=== PATIENT | female | born 1985 | race Two or more races ===

== ENCOUNTER 2022-02-03 15:39 | Emergency (ER) | payer MEDICAID ==
[~2022-02-03] VITALS: Ht 162.6 cm; Wt 72.7 kg
[2022-02-03] MEDS ORDERED: CHOL500043 PO (15:54)
[2022-02-03] MEDS ORDERED: PIOG30TA10 PO (15:54)
[2022-02-03] MEDS ORDERED: GLIP5TAB12 PO (15:54)
[2022-02-03] MEDS ORDERED: MECL-134 PO (15:54)
[2022-02-03] MEDS ORDERED: PB/HYOSCY/ATR/SCOP/LIDO/MAALOX 55 ML BOTTLE PO ONE (16:30)
[2022-02-03] MEDS ORDERED: SODIUM CHLORIDE 0.9% 1,000 ML IV ONE ×2 (16:30→21:15)
[2022-02-03 16:34] LABS: BASOPHILS % (AUTO) 0.5 % (0.0-2.0); HEMATOCRIT 37.9 % (36-46); HEMOGLOBIN 12.5 g/dL (12.0-16.0); LYMPHOCYTES # (AUTO) 2.8 K/uL (1.0-4.8); LYMPHOCYTES % (AUTO) 28.1 % (22.0-44.0); MEAN CORPUSCULAR VOLUME 76 fL (80-100); MONOCYTES # (AUTO) 0.6 K/uL (0.1-1.0); MONOCYTES % (AUTO) 5.9 % (2.0-9.0); NEUTROPHILS # (AUTO) 6.5 K/uL (1.8-7.7); NEUTROPHILS % (AUTO) 64.5 % (40.0-70.0); PLATELET COUNT (AUTO) 322 K/uL (150-450); RED CELL DISTRIBUTION WIDTH 14.4 % (11.5-14.5)
[2022-02-03 16:46] LABS: COVID AG,FIA SOURCE NASAL SWAB
[2022-02-03 16:53] LABS: ALANINE AMINOTRANSFERASE 41 U/L (12-78); ALBUMIN 3.9 g/dL (3.4-5.0); ALKALINE PHOSPHATASE 132 U/L (46-116); ANION GAP 11 mmol/L (8-16); ASPARTATE AMINOTRANSFERASE 20 U/L (15-37); BILIRUBIN,TOTAL 0.3 mg/dL (0.1-1.0); CALCIUM, TOTAL 10.2 mg/dL (8.8-10.5); CARBON DIOXIDE 24 mmol/L (22-29); CHLORIDE 102 mmol/L (98-107); CREATININE 0.56 mg/dL (0.60-1.30); GLUCOSE,RANDOM 132 mg/dL (70-110); SODIUM SERUM 137 mmol/L (136-145); TOTAL PROTEIN, SERUM 7.9 g/dL (6.4-8.2); UREA NITROGEN, BLOOD 14 mg/dL (7-18)
[2022-02-03 16:55] LABS: GLOMERULAR FILTR. RATE CALC > 60 mL/min (>60)
[2022-02-03] MEDS ORDERED: POTASSIUM CHLORIDE 20 MEQ ER TABLET PO ONE (17:15)
[2022-02-03 17:20] LABS: INFLUENZA TYPE A NEGATIVE FOR TYPE A (NEGATIVE); INFLUENZA TYPE B NEGATIVE FOR TYPE B (NEGATIVE)
[2022-02-03 18:37] LABS: THYROID STIMULATING HORMONE 1.89 uIU/mL (0.36-3.74)
[2022-02-03] MEDS ORDERED: SODIUM CHLORIDE 0.9% 100 ML ONE (18:55)
[2022-02-03] MEDS ORDERED: IOHEXOL 350 MG/ML 100 ML VIAL ONE (18:56)
[2022-02-03] MEDS ORDERED: LORazepam 1 MG TABLET PO ONE (20:30)
[2022-02-03 22:19] VITALS: BP 124/71
== END 2022-02-03 22:48 | disposition home or self-care (01) ==
LOC: EMS 15:39
DX: E86.0 Dehydration (principal); E11.9 Type 2 diabetes mellitus without complications; E78.00 Pure hypercholesterolemia, unspecified; Z88.8 Allergy status to other drugs, medicaments and biological substances; Z79.84 Long term (current) use of oral hypoglycemic drugs; Z79.899 Other long term (current) drug therapy; Z20.822 Contact with and (suspected) exposure to COVID-19
CPT/HCPCS: 36415; 71045; 71275; 80053; 82962; 84443; 84484; 84703; 85025; 87426; 87804; 93005; 96360; 96361; 99285; J7030; J7050; Q9967